=== PATIENT | female | born 1955 | race Asian ===

== ENCOUNTER → 2023-12-11 13:38 | Outpatient (CLI) | payer MEDICARE, OTHER, SELFPAY | LOC: RESP 13:38 | PROVIDERS: Referring Provider Internal Medicine; Visit Provider Internal Medicine | DX: R06.02 Shortness of breath (principal); Z87.891 Personal history of nicotine dependence; R94.2 Abnormal results of pulmonary function studies | CPT/HCPCS: 94060; 94726; 94729 ==

== ENCOUNTER → 2023-12-12 13:52 | Outpatient (CLI) | payer MEDICARE, OTHER, SELFPAY ==
--- NOTE | 2023-12-12 13:53 | DI.CT.S_ITS ---
PROCEDURE: CT CHEST HIGH RESOLUTION INDICATIONS: shortness of breath post-TB treatment TECHNIQUE: Noncontrast 1.0 and 5.0 mm thick contiguous axial sections from the pulmonary apex to the posterior costophrenic angles, with 7 mm thick coronal and sagittal MIP reformats. 1 mm thick dynamic expiratory images acquired through the upper, mid, and lower lungs. 1.0 mm thick axial sections acquired from the cristain to the posterior costophrenic angles in the prone end-inspiration position. For radiation dose reduction, the following was used: automated exposure control, adjustment of mA and/or kV according to patient size. COMPARISON: Outside Facility, RG, CT THORAX W/O CONTRAST, 06/22/2022, 13:39. Outside Facility, RG, CT LUNG CANCER SCREENING, 01/31/2022, 13:55. FINDINGS: Image quality: Diagnostic. Lower Neck: No enlarged lymph nodes. Thyroid: No thyroid nodules which require sonographic follow up, per consensus guidelines. Axillae: No enlarged lymph nodes. Chest Wall: Unremarkable. Bones: No suspicious osseous lesion. Lungs and Pleura: Scarring in the left upper lobe. There is left upper lobe volume loss. Prior cavitation in the left upper lobe is no longer seen. Prior cavitation in the superior segment of the left lower lobe is no longer seen. A few small pulmonary nodules. For example: -Left lower lobe 0.7 x 0.4 cm, (), previously 0.5 x 0.5 cm in 2021. -Left lower lobe 0.4 cm, (), previously nodular opacity in this region measuring 0.6 cm. There is air trapping. The central airways are clear. No pleural effusion. No pneumothorax. Heart: Heart size is normal. Severe coronary artery calcifications. No pericardial effusion. Thoracic Vessels: The aorta and pulmonary arteries demonstrate normal size. Mediastinum and Shae: No enlarged lymph nodes. Esophagus: No wall thickening. No hiatal hernia. Upper Abdomen: Visualized upper abdomen solid organs and bowel loops appear normal. IMPRESSION: 1. Cavitations in the left lung are no longer present. Otherwise, similar scarring in the left upper lobe. 2. A few small pulmonary nodules which are not significantly changed. 3. No convincing acute airspace opacity. No pleural effusion. Air trapping is present. Dictated by: Sim Kaplan M.D. on 12/13/2023 at 18:32 Approved by: Sim Kaplan M.D. on 12/13/2023 at 18:44
== END ==
LOC: CT 13:53
PROVIDERS: Referring Provider Internal Medicine; Visit Provider Internal Medicine
DX: J98.4 Other disorders of lung (principal); R06.02 Shortness of breath; R91.8 Other nonspecific abnormal finding of lung field; I25.10 Atherosclerotic heart disease of native coronary artery without angina pectoris
CPT/HCPCS: 71250